=== PATIENT | male | born 1950 | race Caucasian/White ===

== ENCOUNTER 2020-04-11 00:07 | Emergency (ER) | payer OTHER ==
[2020-04-11 02:28] LABS: RED BLOOD COUNT 4.72 M/UL (4.20-5.50); WHITE BLOOD COUNT 6.2 K/UL (4.5-11.0)
[2020-04-11 02:49] LABS: BUN/CREATININE RATIO 27 (0-10)
== END 2020-04-11 08:14 | disposition home or self-care (01) ==
LOC: ER1 00:07
PROVIDERS: Physician Assistant
DX: U07.1 COVID-19 (principal); J12.89 Other viral pneumonia; R41.0 Disorientation, unspecified; E11.9 Type 2 diabetes mellitus without complications; I10 Essential (primary) hypertension
CPT/HCPCS: 36600; 70450; 71045; 80053; 81001; 82550; 82553; 82803; 83605; 83690; 83874; 83880; 84484; 85025; 87040; 87086; 93005; 99285; M0239; U0002